=== PATIENT | male | born 1995 | race Caucasian/White ===

== ENCOUNTER 2017-02-05 19:28 | Emergency (ER) | payer OTHER ==
[~2017-02-05] VITALS: Ht 182.9 cm; Wt 72.6 kg
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
[~2017-02-05 19:28] MED LIST: BENADRYL
[2017-02-05] MEDS ORDERED: NO MEDICATIONS (20:20)
== END 2017-02-05 23:29 | disposition home or self-care (01) ==
LOC: SED 19:28
DX: S13.4XXA Sprain of ligaments of cervical spine, initial encounter (principal); S00.93XA Contusion of unspecified part of head, initial encounter; V49.40XA Driver injured in collision with unspecified motor vehicles in traffic accident, initial encounter; F17.210 Nicotine dependence, cigarettes, uncomplicated
CPT/HCPCS: 70450; 72040; 99284